=== PATIENT | female | born 1955 | race Caucasian/White ===

== ENCOUNTER 2016-06-07 12:05 | Emergency (ER) | payer OTHER ==
[~2016-06-07] VITALS: Ht 167.6 cm; Wt 96.0 kg
[~2016-06-07 12:05] MED LIST: HYZA100T6 PO; LATA0.002 EACH EYE; LORA-392 PO; LYRI75CA PO; MELO7.5T4 PO; METH750T PO; NORT50CA PO
[2016-06-07 12:12] VITALS: BP 157/82; PULSE 93; RESP 16; TEMP 98.1; O2SAT 99
[2016-06-07 12:28] LABS: BLOOD, URINE TRACE (NEG); GLUCOSE,URINE NEG (NEG); KETONE, URINE NEG (NEG); NITRITE,URINE NEG (NEG)
--- NOTE | 2016-06-07 12:37 | PD ---
HPI Chief Complaint: Back/ Neck Pain or Injury Time Seen by Provider: 12:34 Travel History International Travel<30 days: No Contact w/Intl Traveler<30days: No Traveled to known affect area: No History of Present Illness HPI 60 year old female with PMH of HTN , diverticulitis and chronic back pain presents to the ED for evaluation of less than 24 hour history of left-sided back pain, radiating to the buttocks and to the outside of the left leg to the knee. Patient denies fevers, chills weakness or limitations to range of motion of the lower extremities, saddle anesthesia or urinary or fecal incontinence. She states this pain is similar to pain that she's had in the past. She states that she was previously receiving corticosteroid injections, however she is in between providers at this time. She treated with 1500 mg of Robaxin this morning with only mild improvement of symptoms. She endorses a strong odor to her urine, denies dysuria, hematuria, increased urinary frequency. PFSH Past Medical History High Cholesterol: Yes Diabetes: No Diverticulitis: Yes Hypertension: Yes (takes no meds) Immunizations Current: Yes Tetanus Vaccination: Unknown ?: Not Menopausal: Yes : 2 Para: 2 Tubal Ligation: Yes Past Surgical History Abdominal Surgery: Yes (umbilcal hernia repair) Cholecystectomy: Yes (2001) Hysterectomy: Yes Social History Alcohol Use: Yes () Tobacco Use: No Substance Use: No Allergies-Medications (Allergen,Severity, Reaction): Coded Allergies: Latex (Verified Allergy, Unknown, 06/07/16) Darvon (Verified Adverse Reaction, Intermediate, VOMITTING, 06/07/16) Hydrocodone (Verified Adverse Reaction, Intermediate, VOMITTING, 06/07/16) Reported Meds & Prescriptions Reported Meds & Active Scripts Active Bactrim DS (Sulfamethoxazole-Trimethoprim) 800-160 Mg Tab 1 Tab PO BID Medrol Dosepak (Methylprednisolone) 4 Mg Dspk 4 Mg PO DIRECTED Per Pharmacist direction Reported Methocarbamol 750 Mg Tab 750 Mg PO Q4H Meloxicam 7.5 Mg Tab 7.5 Mg PO DAILY Nortriptyline (Nortriptyline HCl) 50 Mg Cap 50 Mg PO HS Lyrica (Pregabalin) 75 Mg Cap 75 Mg PO TID Ativan (Lorazepam) 0.5 Mg Tab 0.5 Mg PO DAILY PRN Latanoprost Opth Drops (Latanoprost) 0.005% Drops 1 Drop EACH EYE HS Refrigerate until opened. Hyzaar (Losartan-Hydrochlorothiazide) 100-25 Mg Tab 1 Tab PO DAILY Review of Systems Except as stated in HPI: all other systems reviewed are Neg Physical Exam Narrative GENERAL: Well-nourished, well-developed nontoxic-appearing white female in no acute distress. SKIN: Warm and dry. HEAD: Normocephalic. EYES: No scleral icterus. No injection or drainage. NECK: Supple, trachea midline. No JVD or lymphadenopathy. CARDIOVASCULAR: Regular rate and rhythm without murmurs, gallops, or rubs. 2+ DP and radial pulses bilaterally. RESPIRATORY: Breath sounds equal bilaterally. No accessory muscle use. GASTROINTESTINAL: Abdomen soft, non-tender, nondistended. MUSCULOSKELETAL: No cyanosis, or edema. 5/5 strength of dorsiflexion, plantarflexion, knee flexion, hip flexion bilaterally. Left-sided straight leg raise elicits pain. Patient is observed to walk with a slow but steady gait. BACK: No obvious deformity. No CVA tenderness. Tender to palpation of the paraspinal musculature in the left lumbar area, left buttocks, left lateral leg. Data Data Last Documented VS Vital Signs Date Time Temp Pulse Resp B/P Pulse Ox O2 Delivery O2 Flow Rate FiO2 06/07/16 12:12 98.1 93 16 157/82 99 Orders Urinalysis - C+S If Indicated (06/07/16 12:17) Urine Culture (06/07/16 12:10) Dexamethasone Inj (Decadron Inj) (06/07/16 13:00) Labs Laboratory Tests Test 06/07/16 12:10 Urine Collection Type CLEAN CATCH Urine Color STRAW Urine Turbidity CLEAR Urine pH 6.0 Urine Specific [place] 1.005 Urine Protein NEG mg/dL Urine Glucose (UA) NEG mg/dL Urine Ketones NEG mg/dL Urine Occult Blood TRACE Urine Nitrite NEG Urine Bilirubin NEG Urine Leukocyte Esterase NEG Urine RBC 0-3 /hpf Urine WBC 0-2 /hpf Urine Squamous Epithelial 0-5 /hpf Cells Urine Bacteria MANY /hpf Microscopic Urinalysis Comment CULTURE INDICATED Urine Collection Time 12:10 [facility] Medical Decision Making Medical Screen Exam Complete: Yes Emergency Medical Condition: Yes Differential Diagnosis Radiculopathy versus sciatica versus muscle spasm versus musculoskeletal pain versus other Narrative Course 60 year old female with PMH of HTN , diverticulitis and chronic back pain presents to the ED for evaluation of less than 24 hour history of left-sided back pain, radiating to the buttocks and to the outside of the left leg to the knee. Patient denies fevers, chills weakness or limitations to range of motion of the lower extremities, saddle anesthesia or urinary or fecal incontinence. She states this pain is similar to pain that she's had in the past. Endorses a strong odor to her urine, denies dysuria or hematuria. Vitals reviewed. Physical exam reveals a nontoxic-appearing white female in no acute distress. There is tenderness of the lumbar spine, left buttock and left lateral hip and thigh. No CVA tenderness. Straight leg raise positive on the left. Patient maintains 5/5 strength in the lower extremities. She is observed to walk with a slow but normal gait. UA reveals many bacteria, culture pending. This is sciatica and UTI. Patient was administered IM steroids and provided with a Medrol Dosepak. She was also provided with a prescription for Bactrim DS twice a day 3 days. She was cautioned to abstain from taking alprazolam during UTI treatment. She is encouraged to return to normal, gentle activity as tolerated , follow-up with the neurologist and pain management doctors. She indicated understanding of the instructions. She is amenable to the plan of care. She is stable and discharged home. Diagnosis Primary Impression: Sciatica of left side Additional Impression: Urinary tract infection Qualified Code: N39.0 - Urinary tract infection without hematuria, site unspecified Referrals: Neurologist Pain Management Patient Instructions: General Instructions, Sciatica (ED) Additional Instructions: A mixture of rest and activity is best for back pain. Stay hydrated. Begin Bactrim for urinary tract infection today. Do not take Ativan while taking Bactrim. Begin Medrol Dosepak tomorrow. Continue taking Robaxin every 8 hours as needed for muscle spasm. Return to normal, gentle activity as tolerated. Follow-up with pain management or neurologist this week. Return to the ED for any urgent or emergent medical condition. Med/Other Pt SpecificInfo: Prescription(s) given Scripts Sulfamethoxazole-Trimethoprim (Bactrim DS)800-160 Mg Tab1 Tab PO BID #6 TAB Ref 0 Prov:Doris Bowman DO 06/07/16 Methylprednisolone Dosepak (Medrol Dosepak)4 Mg Dspk4 Mg PO DIRECTED #1 DSPK Ref 0 Per Pharmacist direction Prov:GracieDoris PATEL 06/07/16 Disposition: 01 DISCHARGE HOME Condition: Stable Prerna Hager Jun 07, 2016 12:37
[2016-06-07 12:49] LABS: METHOD OF COLLECTION CLEAN CATCH; URINE COLOR STRAW (YELLW/STRAW)
[2016-06-07 12:50] LABS: BACTERIA, URINE MANY /hpf; COMMENT (UR) CULTURE INDICATED; CULTURE IF INDICATED CULTURE INDICATED; RBC, URINE 0-3 /hpf (0-3); SQUAMOUS EPITHELIAL CELL URINE 0-5 /hpf (0-5); WBC, URINE 0-2 /hpf (0-5)
[2016-06-07] MEDS ORDERED: BACT800T5 PO (12:57)
[2016-06-07] MEDS ORDERED: MEDR4PAK PO (12:57)
[2016-06-07] MEDS ORDERED: DEXAMETHASONE SOD PHOS 4 MG/ML VIAL IM ONE (13:00)
[2016-06-16] MEDS ORDERED: CYCL1TAB29 PO (09:11)
[2016-06-16] MEDS ORDERED: VALA1TAB PO (09:12)
[2016-06-16] MEDS ORDERED: METH125I2 IM (09:54)
[2016-06-16] MEDS ORDERED: KETO60IN6 IM (09:55)
[2016-06-29] MEDS ORDERED: KETO60IN6 IM (09:12)
[2016-06-29] MEDS ORDERED: METH125I2 IM (09:13)
[2016-08-21] MEDS ORDERED: HYZA100T6 PO (13:46)
[2016-08-31] MEDS ORDERED: ZOFR4TAB PO (12:16)
== END 2016-06-07 13:16 | disposition home or self-care (01) ==
LOC: PHEFT 12:05
DX: M54.32 Sciatica, left side (principal); N39.0 Urinary tract infection, site not specified; I10 Essential (primary) hypertension; E78.00 Pure hypercholesterolemia, unspecified; B96.1 Klebsiella pneumoniae [K. pneumoniae] as the cause of diseases classified elsewhere
CPT/HCPCS: 81001; 87077; 87086; 87186; 96372; 99283; J1100